=== PATIENT | male | born 1970 | race African-American/Black ===

== ENCOUNTER 2022-07-01 13:13 | Emergency (ER) | payer OTHER ==
[~2022-07-01] VITALS: Ht 193 cm; Wt 101.0 kg
[2022-07-01 13:31] VITALS: BP 139/90
== END 2022-07-01 17:27 | disposition left against medical advice (07) ==
LOC: ER 13:13
DX: Z53.21 Procedure and treatment not carried out due to patient leaving prior to being seen by health care provider (principal)
CPT/HCPCS: 99281

== ENCOUNTER 2022-07-02 01:17 | Emergency (ER) | payer OTHER | END 2022-07-02 01:52 | disposition left against medical advice (07) | LOC: ER 01:17 | DX: M79.10 Myalgia, unspecified site (principal); Z53.21 Procedure and treatment not carried out due to patient leaving prior to being seen by health care provider ==